=== PATIENT | male | born 1960 | race Caucasian/White ===

== ENCOUNTER 2025-02-22 06:55 | Day surgery (SDC) | payer BC ==
[2025-02-22] MEDS ORDERED: Glycopyrrolate 0.2 MG/ML 5 ML MDV IV ONE (06:56)
[2025-02-22] MEDS ORDERED: Propofol 200 MG/20 ML SDV IV ONE (06:56)
[2025-02-22] MEDS ORDERED: Ketamine 500 mg/10 ML MDV IV ONE (06:56)
[2025-02-22] MEDS ORDERED: Midazolam 1 MG/ML 2 ML SDV IV ONE (06:56)
[2025-02-22] MEDS ORDERED: Lidocaine 2% 100 MG/5 ML Syringe IVPUSH ONE (06:56)
[2025-02-22] MEDS ORDERED: Sodium Chloride 0.9% 10 ML Syringe FLUSH PRN (07:00)
[2025-02-22] MEDS: Lactated Ringers 1,000 ML IV SCH (07:53)
[2025-02-22] MEDS: Simethicone Drops 40 MG/0.6 ML 30 ML Bottle ONE (09:00)
== END 2025-02-22 10:20 | disposition home or self-care (01) ==
LOC: FB.SDS 06:55
PROVIDERS: ATTEND Surgery
DX: Z12.11 Encounter for screening for malignant neoplasm of colon (principal); D12.6 Benign neoplasm of colon, unspecified; Z86.0101 Personal history of adenomatous and serrated colon polyps; Z80.0 Family history of malignant neoplasm of digestive organs
CPT/HCPCS: 00811; 45384; 45385; 88305; A9270; J1596; J2250; J2704; J3490; J7120